=== PATIENT | male | born 1970 | race Caucasian/White ===

== ENCOUNTER 2020-05-01 09:08 | Outpatient (CLI) | payer BC, SELFPAY ==
--- NOTE | ~2020-05-01 | XR_ITS ---
XR lumbar spine 2-3V 05/01/2020 09:43 Indication: Back pain Procedure: 3 views lumbar spine Comparison: No prior studies for comparison. Findings: There is disc narrowing at L5-S1. There is endplate degenerative change. There is vacuum ph enomena at this level. No acute fracture or traumatic malalignment. No evidence for spondylolisthesis . Impression: 1: Mild lumbar spondylosis at L5-S1. Reviewed, dictated and finalized at location B. Impression: 1: Mild lumbar spondylosis at L5-S1.
--- NOTE | ~2020-05-01 | XR_ITS ---
EXAMINATION: XR chest 2V 05/01/2020 09:44 INDICATION: Chest pain. History of COPD. PROCEDURE: 2 view chest COMPARISON: Comparison to multiple prior studies sequentially, with oldest reviewed study dated 11/2013. FINDINGS: The lungs are clear. The cardiomediastinal silhouette is within normal limits. There is a prominent left nipple shadow. There are no pleural effusions. There is no pneumothorax suspected. IMPRESSION: 1: NO ACUTE CARDIOPULMONARY DISEASE. Reviewed, dictated and finalized at location B.
[2020-05-01 09:21] LABS: Basophils Absolute Auto 0.03 K/mm3 (0.00-0.10); Basophils Percent Auto 0.4 % (0.0-1.0); Eosinophils Absolute Auto 0.14 K/mm3 (0.02-0.50); Eosinophils Percent Auto 1.7 % (1.0-6.0); Hemoglobin 16.6 g/dL (14.0-18.0); Immature Granulocyte Absolute 0.02 K/mm3 (0.00-0.00); Immature Granulocyte Percent A 0.2 % (0.0-0.0); Lymphocytes Absolute Auto 2.72 K/mm3 (1.10-4.50); Lymphocytes Percent Auto 32.6 % (18.0-42.0); Mean Corpuscular HGB Conc 35.3 g/dL (32.0-36.0); Mean Corpuscular Hemoglobin 32.4 pg (27.0-31.0); Mean Corpuscular Volume 91.8 fL (78.0-102.0); Monocytes Absolute Auto 0.62 K/mm3 (0.10-0.90); Monocytes Percent Auto 7.4 % (2.0-11.0); Neutrophils Absolute Auto 4.8 K/mm3 (1.7-7.2); Neutrophils Percent Auto 57.7 % (50.0-70.0); Platelet Count Result 205 K/mm3 (150-420); Red Blood Count 5.12 M/mm3 (4.70-6.10); Red Cell Distribution Width 11.8 % (11.6-14.4); White Blood Count 8.4 K/mm3 (4.8-10.8)
[2020-05-01 10:41] LABS: Alanine Aminotransferase 53 U/L (16-63); Anion Gap 10 mmol/L (8-16); Aspartate Amino Transferase < 10 U/L (15-37); Bilirubin,Total 0.4 mg/dL (0.00-1.00); Blood Urea Nitrogen 15 mg/dL (7-18); Calcium 9.1 mg/dL (8.5-10.1); Carbon Dioxide 27 mmol/L (21-32); Chloride 105 mmol/L (98-108); Estimated Glomerular Filt Rate > 60; Glucose 93 mg/dL (70-99); Osmolality Calculated 294 mOsm/kg (285-295); Potassium 4.3 mmol/L (3.5-5.1); Sodium 142 mmol/L (136-145)
[2020-05-01 10:42] LABS: Albumin Level 4.5 g/dL (3.4-5.0); Alkaline Phosphatase 82 U/L (46-116); Cholesterol 215 mg/dL (0-200); Creatine Kinase 126 U/L (39-308); HDL Direct 34 mg/dL (40-60); LDL Cholesterol Calculated 137 mg/dL (<130); Total Protein 7.4 g/dL (6.4-8.2); Triglycerides 218 mg/dL (0-150)
[2020-05-01 10:56] LABS: Troponin I < 0.02 ng/mL (0.00-0.056)
== END 2020-05-01 09:09 | disposition home or self-care (01) ==
PROVIDERS: PCP Internal Medicine; Visit Provider Internal Medicine
DX: R07.9 Chest pain, unspecified (principal); E78.5 Hyperlipidemia, unspecified; M54.9 Dorsalgia, unspecified
CPT/HCPCS: 36415; 71046; 72100; 80053; 80061; 82550; 82553; 84484; 85025

== ENCOUNTER 2020-09-07 08:20 | Outpatient (CLI) | payer BC, SELFPAY ==
--- NOTE | ~2020-09-07 | MR_ITS ---
EXAMINATION: MR lumbar spine wo con EXAM DATE: 09/07/2020 09:10 INDICATION: Lumbar strain, low back pain, progressing over few months. TECHNIQUE: Multi-sequential, multiplanar MR images of the lumbar spine were obtained without contrast . Sagittal T1, T2, T2 fat saturation images. Axial T2 weighted images. There is no prior study for comparison. FINDINGS: There is L4-5 and L5-S1 disc desiccation. There is moderate loss of the L5-S1 disc height, mild at L4-5 with annular fissure. There is 3 mm retrolisthesis L5 on S1. The vertebral bodies are ot herwise aligned. The conus medullaris terminates at the L1/2 level and has normal signal intensity an d morphology. Paraspinal soft tissue is unremarkable. Level by level evaluation: L1-L2: Disc does not extend beyond the endplate margin. Facet arthropathy: Mild. Neural foraminal stenosis: No stenosis. Central canal stenosis: No stenosis. L2-L3: Disc does not extend beyond the endplate margin. Facet arthropathy: Mild to moderate. Neural foraminal stenosis: No stenosis. Central canal stenosis: No stenosis. L3-L4: There is a mild diffuse disc bulge. Facet arthropathy: Mild. Neural foraminal stenosis: No stenosis. Central canal stenosis: No stenosis. L4-L5: There is a moderate diffuse disc bulge. Facet arthropathy: Mild to moderate. Neural foraminal stenosis: Mild to moderate bilateral. Central canal stenosis: Mild to moderate. L5-S1: There is a mild to moderate diffuse disc bulge. Facet arthropathy: Mild to moderate. Neural foraminal stenosis: Moderate bilateral. Central canal stenosis: Mild. IMPRESSION: 1. L5-S1 grade 1 retrolisthesis, moderate spondylosis. 2. Lesser spondylosis above. Reviewed, dictated and finalized at location A. 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
== END 2020-09-07 08:21 | disposition home or self-care (01) ==
LOC: CHSIMG 08:24
PROVIDERS: PCP Nurse Practitioner Psychiatric/Mental Health; Visit Provider Nurse Practitioner Psychiatric/Mental Health
DX: S39.012A Strain of muscle, fascia and tendon of lower back, initial encounter (principal)
CPT/HCPCS: 72148

== ENCOUNTER 2020-09-18 14:52 | Outpatient (RCR) | payer BC, SELFPAY ==
--- NOTE | 2020-09-18 15:55 | PTOPEVAL ---
Thank you for referring Wilson Ding to [facility] The patient is scheduled to be seen for therapy? ____x/week for ___ weeks. Please review, sign, date and return this plan of care ARON. I agree with and certify that the following plan of care is medically necessary. Referring Physician Date Admitting Provider: Attending Provider: Madi Giles Referring Provider: NICKY Outpatient Evaluation Start: 09/18/20 15:06 Freq: Status: Active Protocol: Document 09/18/20 15:05 DULCE (Rec: 09/18/20 15:52 DULCE [email or web address]) Therapy Assessment Status Assessment Status Assessment Status Evaluation Evaluation Information Problem Diagnosis lumbar stenosis, lumbar radiculopathy Onset 08/30/20 Additional Evaluation Detail oswestry = 20% functionally declined Subjective Information patient reports he has been Query Text:As Reported By Patient/ having pain in the back for Family about 3 months. he reports the pain got better initially, but started back up about 3 weeks ago. he reports the pain is now worse this time around . he reports he took a dose pack for the pain in the lower back during the 1st bout. he reports he felt a pop in his back the 2nd time that put him in a position unable to walk. he reports he has had an xray and an mri of the lumbar spine. his MRI shows mild to moderate stenosis. he reports he has numbness and burning in the front of his R LE. patient reports he has pain down the leg with sitting or standing for a long time. he reports he has general back pain/tightness with bending and twisting activities. 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 he reports prior to 3 months ago, no major issues, but dome tightness/ soreness with long days here and there. patient reports he
--- NOTE | 2020-09-18 16:12 | PTOPEVAL ---
Thank you for referring Wilson Ding to [facility].? The patient is scheduled to be seen for therapy? ____x/week for ___ weeks. Please review, sign, date and return this plan of care ARON. I agree with and certify that the following plan of care is medically necessary. Referring Physician Date Admitting Provider: Attending Provider: Madi Giles Referring Provider: NICKY Outpatient Evaluation Start: 09/18/20 15:06 Freq: Status: Active Protocol: Document 09/18/20 15:05 DULCE (Rec: 09/18/20 15:52 DULCE [email or web address]) Therapy Assessment Status Assessment Status Assessment Status Evaluation Evaluation Information Problem Diagnosis lumbar stenosis, lumbar radiculopathy Onset 08/30/20 Additional Evaluation Detail oswestry = 20% functionally declined Subjective Information patient reports he has been Query Text:As Reported By Patient/ having pain in the back for Family about 3 months. he reports the pain got better initially, but started back up about 3 weeks ago. he reports the pain is now worse this time around . he reports he took a dose pack for the pain in the lower back during the 1st bout. he reports he felt a pop in his back the 2nd time that put him in a position unable to walk. he reports he has had an xray and an mri of the lumbar spine. his MRI shows mild to moderate stenosis. he reports he has numbness and burning in the front of his R LE. patient reports he has pain down the leg with sitting or standing for a long time. he reports he has general back pain/tightness with bending and twisting activities. 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 he reports prior to 3 months ago, no major issues, but dome tightness/ soreness with long days here and there. patient reports he
--- NOTE | 2020-11-18 07:13 | PCPTNOTE ---
11/18/20 - patient has not been to skilled PT in nearly 2 months. as of this date, he will be dc'd from skilled PT services and all progress towards goals will be taken from his most recent evaluation/note. DULCE
== END 2020-09-23 10:45 | disposition home or self-care (01) ==
LOC: CHSPT 14:52
DX: M48.061 Spinal stenosis, lumbar region without neurogenic claudication (principal); M54.16 Radiculopathy, lumbar region
CPT/HCPCS: 97014; 97110; 97161; G0283

== ENCOUNTER 2021-06-15 19:57 | Emergency (ER) | payer BC, SELFPAY ==
--- NOTE | ~2021-06-15 | XR_ITS ---
XR chest 1V portable 06/15/2021 20:42 Indication: Chest pain Procedure: AP portable chest Comparison: Comparison to multiple prior studies sequentially, with oldest reviewed study dated 03/2015. Findings: Heart size normal. Elevated right diaphragm. Right basilar atelectasis. No focal pneumonia, edema, pleural effusion or pneumothorax. No acute osseous abnormality. Impression: 1: Right basilar atelectasis. Reviewed, dictated and finalized at location A. Impression: 1: Right basilar atelectasis.
--- NOTE | 2021-06-15 20:01 | ECG_ITS ---
Measurements Intervals [place] Rate: 95 P: 61 GA: 165 QRS: -42 QRSD: 106 T: 68 QT: 339 QTc: 428 Interpretive Statements SINUS RHYTHM LEFT AXIS DEVIATION CANNOT RULE OUT SEPTAL INFARCT, AGE INDETERMINATE BORDERLINE ST-T WAVE ABNORMALITY- INF/LAT LEADS BASELINE ARTIFACT- I, II, AVR, AVF, V1-V2 ABNORMAL ECG Electronically Signed On 06-16-2021 7:54:11 CDT by Cristhian Blanca D.O.
[2021-06-15 20:05] VITALS: BP 216/122; PULSE 95; RESP 20; TEMP 37.3; O2SAT 97
[2021-06-15] MEDS: SODIUM CHLORIDE 0.9% IV 1,000 ML 150 ML IV CONT (20:15)
[2021-06-15] MEDS: NITROGLYCERIN SL 0.4 MG TABLET SUBLINGUAL (20:20)
[2021-06-15] MEDS: ASPIRIN 81 MG CHEWABLE TABLET 324 MG (20:25)
[2021-06-15] MEDS: ONDANSETRON INJ 4 MG/2 ML VIAL IV PUSH ×3 (20:25→21:07)
[2021-06-15 20:27] LABS: Basophils Absolute Auto 0.05 K/mm3 (0.00-0.10); Basophils Percent Auto 0.6 % (0.0-1.0); Eosinophils Absolute Auto 0.18 K/mm3 (0.02-0.50); Eosinophils Percent Auto 2.1 % (1.0-6.0); Hematocrit 46.6 % (40.0-54.0); Hemoglobin 16.7 g/dL (14.0-18.0); Immature Granulocyte Absolute 0.02 K/mm3 (0.00-0.00); Immature Granulocyte Percent A 0.2 % (0.0-0.0); Lymphocytes Absolute Auto 3.37 K/mm3 (1.10-4.50); Lymphocytes Percent Auto 38.4 % (18.0-42.0); Mean Corpuscular HGB Conc 35.8 g/dL (32.0-36.0); Mean Corpuscular Hemoglobin 32.5 pg (27.0-31.0); Mean Corpuscular Volume 90.7 fL (78.0-102.0); Mean Platelet Volume 11.5 fl (8.7-11.0); Monocytes Absolute Auto 0.74 K/mm3 (0.10-0.90); Monocytes Percent Auto 8.4 % (2.0-11.0); Neutrophils Absolute Auto 4.4 K/mm3 (1.7-7.2); Neutrophils Percent Auto 50.3 % (50.0-70.0); Platelet Count Result 186 K/mm3 (150-420); Red Blood Count 5.14 M/mm3 (4.70-6.10); Red Cell Distribution Width 11.5 % (11.6-14.4); White Blood Count 8.8 K/mm3 (4.8-10.8)
[2021-06-15 20:45] VITALS: BP 158/99; PULSE 95; RESP 20; O2SAT 97; O2SAT 98
[2021-06-15 20:45] LABS: Alanine Aminotransferase 64 U/L (16-63); Albumin Level 3.8 g/dL (3.4-5.0); Alkaline Phosphatase 83 U/L (46-116); Bilirubin,Total 0.3 mg/dL (0.00-1.00); Blood Urea Nitrogen 18 mg/dL (7-18); Calcium 7.9 mg/dL (8.5-10.1); Carbon Dioxide 26 mmol/L (21-32); Estimated CRCL calculation 54 ml/min; Estimated Glomerular Filt Rate 36; Lactic Acid Reflex 0.8 mmol/L (0.4-2.0); Total Protein 6.9 g/dL (6.4-8.2)
[2021-06-15] MEDS: MORPHINE SULFATE (*CRX) 2 MG/ML INJ IV PUSH ×2 (20:46→21:18)
[2021-06-15 20:59] LABS: Anion Gap 12 mmol/L (8-16); Aspartate Amino Transferase 20 U/L (15-37); Chloride 102 mmol/L (98-108); Glucose 107 mg/dL (70-99); Osmolality Calculated 291 mOsm/kg (285-295); Potassium 3.8 mmol/L (3.5-5.1); Sodium 140 mmol/L (136-145); Troponin I 4.9 ng/L (0.00-60.4)
[2021-06-15 21:15] VITALS: BP 114/75; PULSE 68; RESP 20; O2SAT 97
[2021-06-15] MEDS: MAG HYDROX/ALUMINUM HYD/SIMETH 30 ML, PHENobarb/HYOSCY/ATROPINE/SCOP 32.4 MG, LIDOCAINE... PO (21:18)
[2021-06-15] MEDS: PANTOPRAZOLE SODIUM IV 40 MG VIAL IV PUSH (21:18)
[2021-06-15 21:45] VITALS: BP 146/87; PULSE 74; RESP 20; O2SAT 99
--- NOTE | 2021-06-15 21:46 | PC.NURSE ---
2019 NITRO #1 B/P 203/118 P 90 PAIN 03/25 2025 NITRO #2 B/P 186/107 P 98 PAIN 03/25 2030 NITRO #3 B/P 180/110 P 100 PAIN 02/22
--- NOTE | 2021-06-15 21:49 | PC.NURSE ---
PT HAD EMESIS FEELS A LITTLE BETTER NOT TORADOL INJ GIVEN
[2021-06-15] MEDS: KETOROLAC (*BKC) 60 MG/2 ML VIAL IM (21:50)
--- NOTE | 2021-06-15 22:01 | ED.CHESTPAIN ---
HPI - Chest Pain General Chief Complaint: Chest Pain Stated Complaint: chest pain Time Seen by Provider: 06/15/21 19:59 Source: patient and RN notes reviewed Mode of arrival: ambulatory Limitations: no limitations History of Present Illness MD complaint: chest pain Pertinent past history: coronary artery disease and prior [place] Onset (ago): minute(s) (30) Timing of current episode: constant Prior episodes: Yes Onset: during rest Pain location: substernal, left chest and epigastric Pain radiation: none Severity: moderate Pain scale (0-10): 8 Quality: aching, heaviness and dull Relieving factors: nothing Exacerbating factors: nothing Associated symptoms: nausea and vomiting Treatment prior to arrival: none Risk Factors Coronary artery disease risk factors: hyperlipidemia, hypertension and family history of CAD before age 50 Thoracic aortic dissection risk factors: none Related Data Home Medications Medication Instructions Recorded Confirmed amlodipine 10 mg PO HS 06/15/21 06/15/21 montelukast 10 mg PO DAILY 06/15/21 06/15/21 sertraline 75 mg PO DAILY 06/15/21 06/15/21 trazodone 150 mg PO HS 06/15/21 06/15/21 Allergies Allergy/AdvReac Type Severity Reaction Status Date / Time meperidine Allergy Unknown Unknown Unverified 06/15/21 21:06 Penicillins Allergy Unknown Unknown Verified 06/15/21 21:06 morphine AdvReac Unknown Unknown Verified 06/15/21 21:27 Review of Systems Review of Systems: All systems reviewed & are unremarkable except as noted in HPI and below Cardiovascular: Cardiovascular: Reports chest pain Gastrointestinal: Gastrointestinal: Reports heartburn and Reports nausea PMFSH Past Medical History Medical History Chest pain Exam Const: General: no acute distress and alert Nutritional Appearance: well nourished Orientation/consciousness: patient oriented x3 Limitations: no limitations HENMT: Head: normal to inspection General nose exam: Normal external nose present and Normal nares present Mouth: Yes lip normal and Yes moist mucous membranes Teeth and gingiva: dentition normal Eyes: Conjunctivae: conjunctivae normal Pupils: Equal, round and reactive pupils present EOM: EOMs intact bilaterally Neck: Neck: normal visual inspection and no lymphadenopathy Chest: Chest palpation & inspection: normal inspection of the chest Resp: Effort & Inspection: normal respiratory effort Auscultation: clear to auscultation bilaterally Cardio: Rate: regular rate Rhythm: regular rhythm GI: Auscultation: normal bowel sounds : General: Yes no CVA tenderness Male General Exam: Yes normal external exam Testes: Testes normal Back/Spine/Pelvis: Back: no CVA tenderness Skin: General skin exam: normal color Rashes: no rashes Neuro: General: patient oriented x3, moves all extremities, no meningeal signs, no focal motor deficits and CN's II-XI intact bilaterally Extrem: General: normal to inspection and no pedal edema Psych: Appearance: grossly normal and well kempt Mental Status: mental status grossly normal Thought content: Yes Normal thought content present Course Course Emergency Course: Pt was stable and less painful, after emesis episode. Reevaluation(s) Date: 06/15/21 Time: 20:56 Vital Signs Vital signs: Vital Signs Temperature 37.3 C 06/15/21 20:05 Pulse Rate 95 06/15/21 20:05 Respiratory Rate 20 06/15/21 20:05 Blood Pressure 216/122 H 06/15/21 20:05 Pulse Oximetry 97 06/15/21 20:05 Temperature 36.9 C 06/15/21 23:18 Pulse Rate 76 06/15/21 23:18 Respiratory Rate 20 06/15/21 23:18 Blood Pressure 145/66 H 06/15/21 23:18 Pulse Oximetry 98 06/15/21 23:18 MDM - Chest Pain Differential Diagnosis Differential diagnosis: Likely atypical chest pain, chest pain and other (GERD) Medical Records Data Attestation: I reviewed the patient's medical records. Lab Data Attestation: I reviewed the patient'
[2021-06-15 22:14] VITALS: BP 136/61; PULSE 74; RESP 20; O2SAT 98
[2021-06-15 22:56] LABS: Troponin I 4.8 ng/L (0.00-60.4)
[2021-06-15 23:18] VITALS: BP 145/66; PULSE 76; RESP 20; TEMP 36.9; O2SAT 98
== END 2021-06-15 23:48 | disposition home or self-care (01) ==
PROVIDERS: Emergency Provider Emergency Medicine; PCP Family Medicine
DX: R07.89 Other chest pain (principal); K21.9 Gastro-esophageal reflux disease without esophagitis
CPT/HCPCS: 36415; 71045; 80053; 83605; 84484; 85025; 93005; 96361; 96372; 96374; 96375; 99283; 99284; A9270; C9113; J1885; J2270; J2405; J7030

== ENCOUNTER 2021-07-26 10:26 | Outpatient (CLI) | payer BC, SELFPAY ==
[2021-07-26 10:39] LABS: Basophils Absolute Auto 0.03 K/mm3 (0.00-0.10); Basophils Percent Auto 0.6 % (0.0-1.0); Eosinophils Percent Auto 1.9 % (1.0-6.0); Hematocrit 47.2 % (40.0-54.0); Immature Granulocyte Absolute 0.01 K/mm3 (0.00-0.00); Immature Granulocyte Percent A 0.2 % (0.0-0.0); Lymphocytes Absolute Auto 2.09 K/mm3 (1.10-4.50); Lymphocytes Percent Auto 40.3 % (18.0-42.0); Mean Corpuscular Hemoglobin 32.1 pg (27.0-31.0); Mean Corpuscular Volume 89.1 fL (78.0-102.0); Mean Platelet Volume 11.3 fl (8.7-11.0); Monocytes Absolute Auto 0.55 K/mm3 (0.10-0.90); Monocytes Percent Auto 10.6 % (2.0-11.0); Neutrophils Absolute Auto 2.4 K/mm3 (1.7-7.2); Neutrophils Percent Auto 46.4 % (50.0-70.0); Platelet Count Result 162 K/mm3 (150-420); Red Cell Distribution Width 11.4 % (11.6-14.4); White Blood Count 5.2 K/mm3 (4.8-10.8)
[2021-07-26 11:04] LABS: Anion Gap 9 mmol/L (8-16); Blood Urea Nitrogen 14 mg/dL (7-18); Calcium 8.5 mg/dL (8.5-10.1); Carbon Dioxide 27 mmol/L (21-32); Chloride 104 mmol/L (98-108); Estimated Glomerular Filt Rate > 60; Glucose 95 mg/dL (70-99); Osmolality Calculated 290 mOsm/kg (285-295); Potassium 4.4 mmol/L (3.5-5.1); Sodium 140 mmol/L (136-145)
== END 2021-07-26 10:27 | disposition home or self-care (01) ==
LOC: CHSLAB 10:30
PROVIDERS: PCP Family Medicine
DX: R00.2 Palpitations (principal); R07.9 Chest pain, unspecified; I10 Essential (primary) hypertension; N17.9 Acute kidney failure, unspecified
CPT/HCPCS: 36415; 80048; 85025

== ENCOUNTER 2021-09-08 07:42 | Outpatient (CLI) | payer BC, SELFPAY ==
[2021-09-08 07:53] LABS: Basophils Absolute Auto 0.04 K/mm3 (0.00-0.10); Basophils Percent Auto 0.6 % (0.0-1.0); Eosinophils Percent Auto 1.4 % (1.0-6.0); Hematocrit 47.7 % (40.0-54.0); Hemoglobin 16.6 g/dL (14.0-18.0); Immature Granulocyte Absolute 0.02 K/mm3 (0.00-0.00); Immature Granulocyte Percent A 0.3 % (0.0-0.0); Lymphocytes Absolute Auto 2.09 K/mm3 (1.10-4.50); Lymphocytes Percent Auto 30.2 % (18.0-42.0); Mean Corpuscular HGB Conc 34.8 g/dL (32.0-36.0); Mean Corpuscular Hemoglobin 32.2 pg (27.0-31.0); Mean Corpuscular Volume 92.6 fL (78.0-102.0); Mean Platelet Volume 11.6 fl (8.7-11.0); Monocytes Absolute Auto 0.48 K/mm3 (0.10-0.90); Monocytes Percent Auto 6.9 % (2.0-11.0); Neutrophils Absolute Auto 4.2 K/mm3 (1.7-7.2); Neutrophils Percent Auto 60.6 % (50.0-70.0); Platelet Count Result 179 K/mm3 (150-420); Red Blood Count 5.15 M/mm3 (4.70-6.10); Red Cell Distribution Width 11.9 % (11.6-14.4); White Blood Count 6.9 K/mm3 (4.8-10.8)
[2021-09-08 08:45] LABS: Anion Gap 8 mmol/L (8-16); Blood Urea Nitrogen 17 mg/dL (7-18); Calcium 9.1 mg/dL (8.5-10.1); Carbon Dioxide 32 mmol/L (21-32); Chloride 103 mmol/L (98-108); Estimated Glomerular Filt Rate 53; Glucose 99 mg/dL (70-99); Osmolality Calculated 297 mOsm/kg (285-295); Potassium 4.6 mmol/L (3.5-5.1); Sodium 143 mmol/L (136-145)
== END 2021-09-08 07:43 | disposition home or self-care (01) ==
LOC: CHSLAB 07:45
PROVIDERS: PCP Nurse Practitioner Psychiatric/Mental Health
DX: R00.2 Palpitations (principal); R07.9 Chest pain, unspecified; I10 Essential (primary) hypertension; N17.9 Acute kidney failure, unspecified
CPT/HCPCS: 36415; 80048; 85025

== ENCOUNTER 2021-11-07 19:32 | Inpatient (IN) | payer BC, SELFPAY ==
--- NOTE | ~2021-11-07 | XR_ITS ---
EXAMINATION: XR chest 2V EXAM DATE: 11/07/2021 20:33 INDICATION: Chest Pain, Upper Mid Quad Abd Pain X 2 Days, Sharp Pain. TECHNIQUE: Frontal and lateral projections of the chest obtained and reviewed. There is no prior jaxson dy for comparison. FINDINGS: The lungs are clear. There are no pleural effusions. The cardiomediastinal silhouette is within normal limits. There is no pneumothorax suspected. The bones and soft tissues are unremarkab le. IMPRESSION: No acute cardiopulmonary findings. Reviewed, dictated and finalized at location G.
--- NOTE | ~2021-11-07 | US_ITS ---
EXAMINATION: US right upper quadrant DATE: 11/08/2021 08:13 INDICATION: Acute cholecystitis TECHNIQUE: Multiple grayscale and Doppler ultrasound images of the abdomen were obtained. COMPARISON: CT dated 11/07/2021 FINDINGS: The pancreatic head and body are normal in appearance. The pancreatic tail is not visualized. Visual ized proximal inferior vena cava is normal. Liver has normal echogenicity and contour, with a smooth surface. No liver lesion identified. No intrahepatic biliary duct dilation suspected. Portal venous f low was seen in the hepatopetal, normal direction and has normal Doppler waveform. There is mild gall bladder wall thickening which measures 3 to 4 mm. There is no cholelithiasis evident in the gallblad inocente. The common bile duct measures 5 mm, which is normal. 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 IMPRESSION: 1. Mild gallbladder wall thickening without sonographic Vines's sign and with likely gallstone at th e cystic duct not visualized on the current study but evident on prior CT which remain suspicious for acute cholecystitis. Reviewed, dictated and finalized at location A. IMPRESSION: 1. Mild gallbladder wall thickening without sonographic Vines's sign and with likely gallstone at the cystic duct not visualized on the current study but bethany dent on prior CT which remain suspicious for acute cholecystitis.
--- NOTE | ~2021-11-07 | CT_ITS ---
EXAMINATION: CT abdomen pelvis w con EXAM DATE: 11/07/2021 20:40 INDICATION: Upper abdominal pain . Epigastric pain. TECHNIQUE: Spiral CT of the abdomen and pelvis was performed following intravenous injection of 100 m L Omnipaque 350. Axial, coronal and sagittal images of the abdomen and pelvis were reviewed. The do se-length product (DLP) for this examination was 1113.55 mGy-cm. The exposure was tailored according to patient size (auto mA exposure control), and iterative reconstruction (ASIR) was used as addition al dose reduction technique. There is no prior study for comparison. FINDINGS: There is small calcified gallstone the cystic duct. Gallbladder is moderately distended and there is mild inflammation surrounding the gallbladder neck. Appearance is suspicious for acute chol ecystitis. Common bile duct is normal in caliber, no intrahepatic biliary duct dilation. The liver, spleen, adrenal glands and pancreas are unremarkable. Portal and splenic veins are wilson nt. Kidneys enhance symmetrically. There is no hydronephrosis. The prostate is unremarkable. The bladder is unremarkable. There is no retroperitoneal or pelvic lymphadenopathy. The appendix is normal. The stomach and small bowel are unremarkable. There is expected amount of c olonic stool. No free intraperitoneal gas. The heart is normal in size. There are no pericardial or pleural effusions. The lung bases are unremarkable. There are no osteoblastic or osteolytic les ions identified. IMPRESSION: Cystic duct stone. Probable acute cholecystitis. Reviewed, dictated and finalized at location .
--- NOTE | 2021-11-07 19:45 | ECG_ITS ---
Measurements Intervals [place] Rate: 78 P: 57 VA: 177 QRS: -26 QRSD: 118 T: 57 QT: 371 QTc: 425 Interpretive Statements SINUS RHYTHM CANNOT RULE OUT SEPTAL MYOCARDIAL INFARCTION , OF INDETERMINATE AGE [40+ ms Q WAVE IN V1/V2] COMPARED TO ECG 06/15/2021 20:08:21 NO SIGNIFICANT CHANGES Electronically Signed On 11-08-2021 8:35:28 CDT by Geo Olvera M.D.
[2021-11-07 19:46] VITALS: BP 176/98; PULSE 85; RESP 22; TEMP 36.4; O2SAT 97
--- NOTE | 2021-11-07 19:54 | ED.ABDPAIN ---
HPI - Abdominal Pain General Chief Complaint: Chest Pain Stated Complaint: CHEST PAIN Time Seen by Provider: 11/07/21 19:36 Source: patient Mode of arrival: ambulatory Limitations: no limitations History of Present Illness HPI narrative: Patient is a 51-year-old male complaining of epigastric pain, 9 out of 10, sharp, radiating to back accompanied by nausea started last night but worse today. Patient denies any chest pain, shortness of breath, vomiting, diaphoresis, fever or chills. Related Data Home Medications Medication Instructions Recorded Confirmed amlodipine 10 mg PO HS 06/15/21 06/15/21 montelukast 10 mg PO DAILY 06/15/21 06/15/21 sertraline 75 mg PO DAILY 06/15/21 06/15/21 trazodone 150 mg PO HS 06/15/21 06/15/21 Allergies Allergy/AdvReac Type Severity Reaction Status Date / Time Penicillins Allergy Unknown Hives Verified 11/07/21 19:53 Review of Systems Review of Systems: All systems reviewed & are unremarkable except as noted in HPI and below Constitutional: Constitutional: Denies body ache(s), Denies chills, Denies excessive sweating, Denies fatigue, Denies fever(s), Denies headache(s), Denies lethargy, Denies malaise, Denies weakness and Denies weight loss Eyes: Eyes: Denies blurry vision, Denies change in vision and Denies loss of vision ENT: Denies dizziness, Denies ear discharge, Denies headache(s), Denies lip swelling, Denies epistaxis, Denies nasal congestion, Denies neck pain, Denies throat swelling and Denies tongue swelling Cardiovascular: Cardiovascular: Denies chest pain, Denies chest pain at rest, Denies chest pain with activity, Denies diaphoresis, Denies rapid heart rate, Denies edema, Denies irregular heart rhythm, Denies lightheadedness, Denies palpitations, Denies dyspnea and Denies dyspnea on exertion Respiratory: Respiratory: Denies chest congestion, Denies cough, Denies hemoptysis, Denies dyspnea and Denies dyspnea on exertion Gastrointestinal: Gastrointestinal: Denies melena, Denies hematochezia, Denies diarrhea, Denies vomiting and Denies hematemesis Musculoskeletal: Musculoskeletal: Denies abnormal gait, Denies deformity, Denies joint swelling, Denies limited range of motion, Denies neck pain and Denies numbness Neurologic: Denies Abnormal speech present, Denies abnormal gait, Denies confusion, Denies dizziness, Denies headache(s), Denies focal weakness, Denies loss of vision, Denies numbness, Denies Other visual disturbances, Denies Sensory deficit (Neuro) and Denies weakness Psychiatric: Psychiatric: Denies confusion, Denies depression, Denies auditory hallucinations, Denies homicidal ideation and Denies suicidal ideation Endocrine: Endocrine: Denies cold intolerance, Denies excessive sweating, Denies fatigue, Denies heat intolerance and Denies palpitations Hematologic/Lymphatic: Hematologic/Lymphatic: Denies easy bleeding and Denies easy bruising Allergic/Immunologic: Allergic/Immunologic: Denies lip swelling, Denies throat swelling and Denies tongue swelling PMFSH Past Medical History Medical History Chest pain Comments Past medical history: Coronary artery disease with stent, hypertension, hyperlipidemia Family history: Hypertension, coronary disease Social history: Positive for smoker, no EtOH or drug use Exam Const: General: cooperative, healthy appearing, comfortable, no acute distress, well developed, alert and awake; No confusion Orientation/consciousness: oriented to person, oriented to place, oriented to time, patient oriented x3 and No confusion Limitations: no limitations HENMT: Head: normal to inspection, normocephalic and atraumatic Ears: hearing grossly normal bilaterally, TM normal on the right and TM normal on the left General nose exam: Normal external nose present, Normal nares present and No nasal discharge present Face and sinus: normal facial exam Mouth: Yes Normal oral and palatal mucosa present,
[2021-11-07 19:59] LABS: Basophils Percent Auto 0.5 % (0.2-1.2); Eosinophils Absolute Auto 0.1 K/mm3 (0-0.3); Eosinophils Percent Auto 1.7 % (0-4.4); Hematocrit 43.7 % (42.0-52.0); Hemoglobin 15.1 g/dL (14.0-18.0); Immature Granulocyte Absolute 0.01 K/mm3 (0.00-0.031); Immature Granulocyte Percent A 0.1 % (0-0.5); Lymphocytes Absolute Auto 2.72 K/mm3 (0.9-3.2); Lymphocytes Percent Auto 36.3 % (18.3-44.2); Mean Corpuscular HGB Conc 34.6 g/dl (32-36); Mean Corpuscular Hemoglobin 31.5 pg (26-34); Mean Corpuscular Volume 91.2 fl (80-100); Mean Platelet Volume 10.8 fl (7.4-10.4); Monocytes Absolute Auto 0.6 K/mm3 (0.1-0.6); Monocytes Percent Auto 7.7 % (2.6-8.5); Neutrophils Percent Auto 53.7 % (45.5-73.1); Platelet Count Result 175 k/mm3 (150-375); Red Blood Count 4.79 M/mm3 (4.6-6.20); Red Cell Distribution Width 11.9 % (11.5-14.5); White Blood Count 7.5 K/mm3 (4.5-10.0)
[2021-11-07] MEDS: MORPHINE SULFATE (*CRX) 2 MG/ML INJ IV PUSH (20:07)
[2021-11-07] MEDS: LACTATED RINGERS 1,000 ML 999 ML IV CONT (20:07)
[2021-11-07] MEDS: PROMETHAZINE HCL 25 MG/ML AMPUL 12.5 MG IV PUSH (20:07)
[2021-11-07 20:09] LABS: Alanine Aminotransferase 31 U/L (4-50); Albumin Level 4.3 g/dL (3.5-5.1); Alkaline Phosphatase 76 U/L (38-126); Anion Gap 5 mmol/L (8-16); Aspartate Amino Transferase 22 U/L (17-59); Bilirubin,Total 0.3 mg/dL (0.2-1.3); Blood Urea Nitrogen 13 mg/dL (9-20); Calcium 8.7 mg/dL (8.4-10.2); Carbon Dioxide 28 mmol/L (22-30); Chloride 106 mmol/L (98-107); Estimated CRCL calculation 104 ml/min; Estimated Glomerular Filt Rate > 60; Glucose 122 mg/dL (65-110); INR 1.3; Lipase 250 U/L (23-300); Potassium 3.8 mmol/L (3.4-5.0); Prothrombin Time 16.1 Seconds (11.1-14.7); Sodium 139 mmol/L (137-145)
[2021-11-07 20:10] LABS: Partial Thromboplastin Time 26.3 SECONDS (22.3-36.8)
[2021-11-07 20:20] LABS: Troponin I < 0.012 ng/mL (0.000-0.034)
[2021-11-07 20:23] LABS: Lactic Acid Reflex 0.9 mmol/L (0.7-2.1)
[2021-11-07 20:53] VITALS: BP 183/93; PULSE 87; RESP 20; O2SAT 96
[2021-11-07] MEDS: MORPHINE SULFATE (*CRX) 4 MG/ML INJ IV PUSH (21:28)
[2021-11-07] MEDS: HYDROmorphone HCL INJ (*CRX) 1 MG/ML SYR IV PUSH (22:25)
[2021-11-07 23:07] VITALS: PULSE 87; RESP 20; O2SAT 96
[2021-11-07 23:09] VITALS: BP 159/97; PULSE 71; RESP 16; TEMP 36.4; O2SAT 93
[2021-11-07 23:10] VITALS: BMI 32.3
[2021-11-07 23:13] LABS: Troponin I 0.015 ng/mL (0.000-0.034)
--- NOTE | 2021-11-07 23:15 | ADMGEN ---
This patient, Wilson Ding, was admitted to 2 Medical Room 240-. Patient/family oriented to hospital policies and general routines including ID bracelet, bed and alarms, visiting hours, pain management, procedures, bathroom and other care routines, personal items, smoking policy, room service/diet, and visiting hours. Information on how to activate the Rapid Response Team has been discussed. Patient/Family are encouraged to report perceived risks to care and to ask questions if they do not understand what they are told or what they should do.
[2021-11-07] MEDS: LACTATED RINGERS 1,000 ML 125 ML IV CONT (23:46)
[2021-11-08] VITALS (10 sets, daily range): BP systolic 133–158; BP diastolic 75–95; PULSE 75–97; RESP 14–20; TEMP 36.8–36.9; O2SAT 94–96
--- NOTE | 2021-11-08 00:46 | PCRCNOTE ---
RT placed hospital S9 unit in pt room. Pt is refusing CPAP currently but states he wears one while at home.
--- NOTE | 2021-11-08 01:02 | PM.IMHP ---
H&P: HPI History of Present Illness Date/Time: 11/08/21 01:02 Chief Complaint: Epigastric and ribcage pain Narrative: 51-year-old male with past medical history of coronary artery disease recent cardiac stent, COPD, hypertension, and continuous tobacco use who presented to the ER with epigastric and right upper quadrant abdominal pain radiating to the ribcage. Patient reported that on the shortly after breakfast he began having epigastric discomfort that radiated to the right upper quadrant. He reported that her bad enough that he decided to go home early from work. By that afternoon his pain had resolved. The next day he ate pizza for lunch and shortly thereafter developed severe epigastric abdominal pain radiates to the right upper quadrant and through to the back. This pain was different than his prior cardiac pain. He stated he felt as if the lower ribs on his right side were being pulled out. Pain was a 10/10 in intensity at its worst and today is currently a 5/10 in intensity after pain medications. He does have some chronic shortness of breath with climbing stairs with associated increased wheezing with vigorous activity. He denies any increased cough recently. He has noticed over the last 24 hours that he is wheezing more than usual. He denies any orthopnea. He does have obstructive sleep apnea and is usually compliant with his CPAP but did not wear his CPAP last night due to his discomfort. He denies any actual chest pain or tightness. He did report that his right upper quadrant pain was worse if he took a deep breath. His pain was accompanied by nausea and vomiting but since his pain has improved he has not had any further nausea or vomiting. He reports his abdomen still feels bloated. He denies having any fevers or chills. He does admit that he has had some vague epigastric and right upper quadrant pain intermittently on and off for the last couple of months. He denies any changes in bowel habits. He does occasionally have weak urinary stream and will occasionally feel like he is not emptying his bladder all the way. He denies any dysuria. He reports he usually drinks a large amount of water at work due to working in a hot environment. He states that the pain he was having blast couple of days was markedly different than his chest pain that he had 2 months ago when he had his stent placed. He had a stent placed at [facility] in [place]. He has not had any further chest pain since he had his stent placed. He does still smoke 1 pack of cigarettes per day but is proud of himself that he has cut down from 2.5 packs of cigarettes per day over the last several months. He reports that nicotine patches and nicotine supplements really do not work for him. He has tried using Chantix in the past and that this causes him to have bad dreams. Review of Systems Review of Systems: 12 systems were reviewed with pertinent positives and negatives per HPI. Except as documented in the HPI, all other systems were reviewed and are negative. [facility] Past Medical History Medical History (Updated 11/08/21 @ 07:12 by Danielle Raymundo DO) Anxiety and depression Continuous tobacco abuse COPD (chronic obstructive pulmonary disease) Coronary artery disease Essential hypertension Hyperlipidemia Obstructive sleep apnea With CPAP use Surgical History Surgical History (Updated 11/08/21 @ 07:12 by Danielle Raymundo DO) History of heart artery stent (08/2021) One stent placed History of tonsillectomy and adenoidectomy History of tympanostomy tube placement Bilateral x7 S/P cubital tunnel release Right Status post cataract extraction and insertion of intraocular lens of left eye Family History Family History (Updated 11/08/21 @ 07:07 by Danielle Raymundo DO) Mother , At age 70 Acute myocardial infarction Hypertension Father Acute myocardial infarction Chronic obstructive pulmonary disease Hypertension Sibling De
[2021-11-08] MEDS: metroNIDAZOLE 500 MG/ISO 100ML 500 MG/100 ML BAG 100 MG IVPB ×5 (02:06→23:53)
[2021-11-08] MEDS: amLODIPine BESYLATE 5 MG TABLET 10 MG PO ×2 (02:08→21:16)
[2021-11-08 02:34] LABS: Troponin I 0.041 ng/mL (0.000-0.034)
[2021-11-08 05:11] LABS: Hematocrit 43.9 % (42.0-52.0); Hemoglobin 15.2 g/dL (14.0-18.0); Mean Corpuscular HGB Conc 34.6 g/dl (32-36); Mean Corpuscular Hemoglobin 31.7 pg (26-34); Mean Corpuscular Volume 91.6 fl (80-100); Mean Platelet Volume 10.9 fl (7.4-10.4); Platelet Count Result 169 k/mm3 (150-375); Red Blood Count 4.79 M/mm3 (4.6-6.20); White Blood Count 10.9 K/mm3 (4.5-10.0)
[2021-11-08 05:21] LABS: Anion Gap 7 mmol/L (8-16); Blood Urea Nitrogen 11 mg/dL (9-20); Carbon Dioxide 27 mmol/L (22-30); Chloride 103 mmol/L (98-107); Estimated CRCL calculation 126 ml/min; Estimated Glomerular Filt Rate > 60; Glucose 108 mg/dL (65-110); Potassium 3.9 mmol/L (3.4-5.0); Sodium 137 mmol/L (137-145)
[2021-11-08 05:33] LABS: Troponin I < 0.012 ng/mL (0.000-0.034)
[2021-11-08] MEDS: HYDROmorphone HCL INJ (*CRX) 1 MG/ML SYR IV PUSH (08:56)
[2021-11-08] MEDS: METOPROLOL TARTRATE 50 MG TAB PO ×2 (09:04→21:16)
[2021-11-08] MEDS: ISOSORBIDE MONONITRATE 60 MG TAB.ER.24H PO (09:04)
[2021-11-08] MEDS: ATORVASTATIN 40 MG TABLET PO (09:04)
[2021-11-08] MEDS: SERTRALINE HCL 25 MG TABLET 75 MG PO (09:04)
[2021-11-08] MEDS: NICOTINE (*PBKC) 21 MG PATCH 1 PATCH TRANSDERM (09:06)
[2021-11-08] MEDS: LACTATED RINGERS 1,000 ML 125 ML IV CONT ×3 (09:14→22:08)
[2021-11-08] MEDS: IPRATROPIUM BR 0.02% INH SOLN 0.5 MG/2.5 ML VIAL INHALATION ×3 (09:57→20:53)
[2021-11-08] MEDS: ALBUTEROL SULFATE NEB 2.5 MG/0.5 ML INH 5 MG INHALATION ×3 (10:00→20:52)
[2021-11-08] MEDS: FLUTICASONE/SALMETEROL 45-21 MCG INHALER 1 PUFF 2 PUFF INHALATION ×2 (10:00→20:53)
--- NOTE | 2021-11-08 11:00 | P.PNIM_ITS ---
Progress Note: A&P Assessment and Plan (1) Acute cholecystitis: Code(s): K81.0 - Acute cholecystitis Status: Acute Assessment and Plan: * Complaints of abdominal pain radiation to the back * Abd/Pel CT cystic duct stone, probably acute cholecystitis * General surgery consulted thank you for your recommendation * Aspirin and Plavix at home * NPO with meds * Dilaudid for pain * IV fluids for hydration * Rocephin 2gm and Flagyl IV Q6hr * Ultrasound: Mild gallbladder wall thickening without sonographic Vines's sign and with likely gallstone at the cystic duct not visualized on the current study but evident on prior CT which remain suspicious for acute cholecystitis. * WBC slightly elevated at 10.9 (2) Continuous tobacco abuse: Code(s): Z72.0 - Tobacco use Status: Acute Assessment and Plan: * Patient smokes daily * Tobacco cessation information was discussed * Nicotine supplements have been offered and are on MAR PRN (3) Coronary artery disease: Qualifiers: Associated angina: without angina Coronary Disease-Associated Artery/Lesion type: [place] artery [place] vs. transplanted heart: [place] heart Qualified Code(s): I25.10 - Atherosclerotic heart disease of [place] coronary artery without angina pectoris Code(s): I25.10 - Atherosclerotic heart disease of [place] coronary artery without angina pectoris Status: Inactive Assessment and Plan: * History coronary artery disease * Given the location and presentation of his pain pain is not likely due to his coronary artery disease * more consistent with acute cholecystitis * Troponins 0.015, 0.041, <0.012 * EKG looks ok * Continue aspirin when appropiate (4) Essential hypertension: Code(s): I10 - Essential (primary) hypertension Status: Inactive Assessment and Plan: * Current BP is 158/95 * NPO as of now restart imdur 60mg PO daily, Metoprolol 50mg PO daily, amlodipine 10mg PO HS, when appropriate * Add hydralizine with parameters * Trend BP * Adjust therapy as indiciated (5) Hyperlipidemia: Code(s): E78.5 - Hyperlipidemia, unspecified Status: Inactive Assessment and Plan: * Atorvastatin 40mg PO daily * Continue when not NPO (6) COPD (chronic obstructive pulmonary disease): Code(s): J44.9 - Chronic obstructive pulmonary disease, unspecified Status: Inactive Assessment and Plan: * Advair added * Takes montelukast at home, continue when appropriate * Trend SPO2 * Chest xray shows no acute cardiopulmonary findings Time Spent With Patient Time with patient: Greater than 35 minutes Subjective Date/time seen: 11/08/21 1100 Interval history: Date/Time: 11/08/21 01:02 Narrative: 51-year-old male with past medical history of coronary artery disease recent cardiac stent, COPD, hypertension, and continuous tobacco use who presented to the ER with epigastric and right upper quadrant abdominal pain radiating to the ribcage. Patient reported that on the shortly after breakfast he began having epigastric discomfort that radiated to the right upper quadrant. He reported that her bad enough that he decided to go home early from work. By that afternoon his pain had resolved. The next day he ate pizza for lunch and shortly thereafter developed severe epigastric abdominal pain radiates to the right upper quadrant and through to the back. This pain was different than his
--- NOTE | 2021-11-08 11:00 | PM.IMPN ---
Progress Note: A&P Assessment and Plan (1) Acute cholecystitis: Code(s): K81.0 - Acute cholecystitis Status: Acute Assessment and Plan: Complaints of abdominal pain radiation to the back Abd/Pel CT cystic duct stone, probably acute cholecystitis General surgery consulted thank you for your recommendation Aspirin and Plavix at home NPO with meds Dilaudid for pain IV fluids for hydration Rocephin 2gm and Flagyl IV Q6hr Ultrasound: Mild gallbladder wall thickening without sonographic Vines's sign and with likely gallstone at the cystic duct not visualized on the current study but evident on prior CT which remain suspicious for acute cholecystitis. WBC slightly elevated at 10.9 (2) Continuous tobacco abuse: Code(s): Z72.0 - Tobacco use Status: Acute Assessment and Plan: Patient smokes daily Tobacco cessation information was discussed Nicotine supplements have been offered and are on MAR PRN (3) Coronary artery disease: Qualifiers: Associated angina: without angina Coronary Disease-Associated Artery/Lesion type: [place] artery [place] vs. transplanted heart: [place] heart Qualified Code(s): I25.10 - Atherosclerotic heart disease of [place] coronary artery without angina pectoris Code(s): I25.10 - Atherosclerotic heart disease of [place] coronary artery without angina pectoris Status: Inactive Assessment and Plan: History coronary artery disease Given the location and presentation of his pain pain is not likely due to his coronary artery disease more consistent with acute cholecystitis Troponins 0.015, 0.041, <0.012 EKG looks ok Continue aspirin when appropiate (4) Essential hypertension: Code(s): I10 - Essential (primary) hypertension Status: Inactive Assessment and Plan: Current BP is 158/95 NPO as of now restart imdur 60mg PO daily, Metoprolol 50mg PO daily, amlodipine 10mg PO HS, when appropriate Add hydralizine with parameters Trend BP Adjust therapy as indiciated (5) Hyperlipidemia: Code(s): E78.5 - Hyperlipidemia, unspecified Status: Inactive Assessment and Plan: Atorvastatin 40mg PO daily Continue when not NPO (6) COPD (chronic obstructive pulmonary disease): Code(s): J44.9 - Chronic obstructive pulmonary disease, unspecified Status: Inactive Assessment and Plan: Advair added Takes montelukast at home, continue when appropriate Trend SPO2 Chest xray shows no acute cardiopulmonary findings Time Spent With Patient Time with patient: Greater than 35 minutes Subjective Date/time seen: 11/08/21 1100 Interval history: Date/Time: 11/08/21 01:02 Narrative: 51-year-old male with past medical history of coronary artery disease recent cardiac stent, COPD, hypertension, and continuous tobacco use who presented to the ER with epigastric and right upper quadrant abdominal pain radiating to the ribcage. Patient reported that on the shortly after breakfast he began having epigastric discomfort that radiated to the right upper quadrant. He reported that her bad enough that he decided to go home early from work. By that afternoon his pain had resolved. The next day he ate pizza for lunch and shortly thereafter developed severe epigastric abdominal pain radiates to the right upper quadrant and through to the back. This pain was different than his prior cardiac pain. He stated he felt as if the lower ribs on his right side were being pulled out. Pain was a 10/10 in intensity at its worst and today is currently a 5/10 in intensity after pain medications. He does have some chronic shortness of breath with climbing stairs with associated increased wheezing with vigorous activity. He denies any increased cough recently. He has noticed over the last 24 hours that he is wheezing more than usual. He denies any orthopnea. He does
--- NOTE | 2021-11-08 12:06 | PM.CNGS ---
Assessment and Plan Assessment and plan (1) Acute calculous cholecystitis: Code(s): K80.00 - Calculus of gallbladder with acute cholecystitis without obstruction Status: Acute Assessment and Plan: I have reviewed the CT and discussed the findings with the patient. He presents with an episode of acute calculous cholecystitis but pain appears somewhat improved this morning and he does not appear septic or in need of emergent operation or decompression. He has been placed on broad-spectrum IV antibiotics. Due to his recent coronary stent placement, I would recommend continuing his Plavix to prevent rethrombosis. This makes the choice of operating much more difficult due to increased risks of bleeding with him being on anti-platelet therapy. Typically anti-platelet therapy should be continued for 6 months after stent placement, therefore it would be best to try to delay surgery until at least February of this year. Will try patient on clear liquids and advanced to low-fat diet as tolerated. Will repeat labs in the morning and reassess patient with his symptoms. If he is able to be discharged on a low-fat diet, will follow-up with patient and work on cardiac clearance for eventual surgery down the road. I discussed with patient that he will have to stay on a strict low-fat diet until it is safe to hold his Plavix and proceed with surgery. If he is unable to tolerate a low-fat diet this weekend, then we will have to consider proceeding with surgery while patient was still on anti-platelet therapy. This of course will increase his bleeding risks with surgery, but might have to proceed with given risks. Patient voiced his understanding. (2) Coronary artery disease: Qualifiers: Coronary Disease-Associated Artery/Lesion type: [place] artery [place] vs. 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 He states that on morning he ate donuts for breakfast and shortly after became ill. He had to go home from work. He then ate pizza for dinner last night and had recurrence of the pain and it became constant. He did have nausea and vomiting associated with this. He denies any fevers or change in bowel habits. He has never had symptoms like this in the past. He does have a recent history of cardiac catheterization with stent placement in August 2021. He was placed on Plavix after this. He denies any other prior history of abdominal problems. He denies any liver disease history. Since being admitted last night, his pain is somewhat improved, but he is still having some constant dull pain. Review of Systems Review of Systems: All systems reviewed & are unremarkable except as noted in HPI and below Constitutional: Constitutional: Denies chills and Denies fever(s) Eyes: Eyes: Denies change in vision ENT: Denies hearing loss, Denies neck pain and Denies sore throat Cardiovascular: Cardiovascular: Reports as per HPI, Denies chest pain and Denies dyspnea Respiratory: Respiratory:
[2021-11-08] MEDS: ASPIRIN 81 MG CHEWABLE TABLET PO (16:43)
[2021-11-08] MEDS: CLOPIDOGREL BISULFATE 75 MG TABLET PO (16:43)
[2021-11-08] MEDS: ENOXAPARIN 40 MG/0.4 ML SYRINGE SUB-Q (16:43)
[2021-11-08] MEDS: HYDROcodone/acetaminophen (*CRX) 5-325 MG TABLET 1 TAB PO (21:16)
[2021-11-08] MEDS: traZODone HCL 50 MG TABLET 150 MG PO (21:16)
[2021-11-08] MEDS: cefTRIAXone 2 GM in SODIUM CHLORIDE 0.9% IV 100 ML 200 ML IVPB (21:17)
--- NOTE | 2021-11-08 22:19 | PC.NURSE ---
11/08/21 Received critical result from Lab @[id number] per telephone. Troponin level of 0.041. Notified patients nurse, Cam Hodges RN of the critical valued called.
[2021-11-09] MEDS: ALBUTEROL SULFATE NEB 2.5 MG/0.5 ML INH 5 MG INHALATION ×2 (02:16→09:08)
[2021-11-09 02:17] VITALS: PULSE 68; RESP 16
[2021-11-09] MEDS: IPRATROPIUM BR 0.02% INH SOLN 0.5 MG/2.5 ML VIAL INHALATION ×2 (02:17→09:08)
[2021-11-09 02:26] VITALS: PULSE 73; RESP 16
[2021-11-09 06:00] VITALS: BP 119/73; PULSE 74; RESP 14; TEMP 36.6; O2SAT 93
[2021-11-09] MEDS: metroNIDAZOLE 500 MG/ISO 100ML 500 MG/100 ML BAG 100 MG IVPB (06:05)
[2021-11-09 06:06] LABS: Basophils Percent Auto 0.3 % (0.2-1.2); Eosinophils Percent Auto 0.6 % (0-4.4); Hematocrit 39.4 % (42.0-52.0); Hemoglobin 13.6 g/dL (14.0-18.0); Immature Granulocyte Absolute 0.02 K/mm3 (0.00-0.031); Immature Granulocyte Percent A 0.3 % (0-0.5); Lymphocytes Absolute Auto 1.66 K/mm3 (0.9-3.2); Lymphocytes Percent Auto 23.4 % (18.3-44.2); Mean Corpuscular HGB Conc 34.5 g/dl (32-36); Mean Corpuscular Volume 92.7 fl (80-100); Mean Platelet Volume 11.8 fl (7.4-10.4); Monocytes Absolute Auto 0.7 K/mm3 (0.1-0.6); Monocytes Percent Auto 9.3 % (2.6-8.5); Neutrophils Absolute Auto 4.7 K/mm3 (1.3-6.7); Neutrophils Percent Auto 66.1 % (45.5-73.1); Platelet Count Result 157 k/mm3 (150-375); Red Blood Count 4.25 M/mm3 (4.6-6.20); Red Cell Distribution Width 12.2 % (11.5-14.5); White Blood Count 7.1 K/mm3 (4.5-10.0)
[2021-11-09] MEDS: LACTATED RINGERS 1,000 ML 125 ML IV CONT (06:09)
[2021-11-09 06:23] LABS: Alanine Aminotransferase 46 U/L (4-50); Albumin Level 3.5 g/dL (3.5-5.1); Alkaline Phosphatase 77 U/L (38-126); Anion Gap 7 mmol/L (8-16); Aspartate Amino Transferase 32 U/L (17-59); Bilirubin,Total 0.7 mg/dL (0.2-1.3); Blood Urea Nitrogen 10 mg/dL (9-20); Calcium 8.2 mg/dL (8.4-10.2); Carbon Dioxide 27 mmol/L (22-30); Chloride 102 mmol/L (98-107); Estimated CRCL calculation 102 ml/min; Estimated Glomerular Filt Rate > 60; Glucose 102 mg/dL (65-110); Magnesium 2.1 mg/dL (1.6-2.3); Potassium 3.8 mmol/L (3.4-5.0); Sodium 136 mmol/L (137-145)
[2021-11-09] MEDS: METOPROLOL TARTRATE 50 MG TAB PO (08:40)
[2021-11-09] MEDS: ISOSORBIDE MONONITRATE 60 MG TAB.ER.24H PO (08:41)
[2021-11-09] MEDS: ATORVASTATIN 40 MG TABLET PO (08:41)
[2021-11-09] MEDS: SERTRALINE HCL 25 MG TABLET 75 MG PO (08:41)
[2021-11-09] MEDS: ENOXAPARIN 40 MG/0.4 ML SYRINGE SUB-Q (08:41)
--- NOTE | 2021-11-09 09:00 | PM.DS ---
DS: Admitting Diagnosis Discharge Date 11/09/21 0900 Admitting Diagnosis Cholecystitis DS: Discharge Diagnosis Discharge Diagnosis (1) Acute cholecystitis: Code(s): K81.0 - Acute cholecystitis Status: Acute Assessment and Plan: Complaints of abdominal pain radiation to the back Abd/Pel CT cystic duct stone, probably acute cholecystitis General surgery consulted thank you for your recommendation Aspirin and Plavix at home NPO with meds Dilaudid for pain IV fluids for hydration Rocephin 2gm and Flagyl IV Q6hr Ultrasound: Mild gallbladder wall thickening without sonographic Vines's sign and with likely gallstone at the cystic duct not visualized on the current study but evident on prior CT which remain suspicious for acute cholecystitis. WBC slightly elevated at 10.9 (2) Continuous tobacco abuse: Code(s): Z72.0 - Tobacco use Status: Acute Assessment and Plan: Patient smokes daily Tobacco cessation information was discussed Nicotine supplements have been offered and are on MAR PRN (3) Coronary artery disease: Qualifiers: Associated angina: without angina Coronary Disease-Associated Artery/Lesion type: [place] artery [place] vs. transplanted heart: [place] heart Qualified Code(s): I25.10 - Atherosclerotic heart disease of [place] coronary artery without angina pectoris Code(s): I25.10 - Atherosclerotic heart disease of [place] coronary artery without angina pectoris Status: Chronic Assessment and Plan: History coronary artery disease Given the location and presentation of his pain pain is not likely due to his coronary artery disease more consistent with acute cholecystitis Troponins 0.015, 0.041, <0.012 EKG looks ok Continue aspirin when appropiate (4) Essential hypertension: Code(s): I10 - Essential (primary) hypertension Status: Inactive Assessment and Plan: Current BP is 158/95 NPO as of now restart imdur 60mg PO daily, Metoprolol 50mg PO daily, amlodipine 10mg PO HS, when appropriate Add hydralizine with parameters Trend BP Adjust therapy as indiciated (5) Hyperlipidemia: Code(s): E78.5 - Hyperlipidemia, unspecified Status: Inactive Assessment and Plan: Atorvastatin 40mg PO daily Continue when not NPO (6) COPD (chronic obstructive pulmonary disease): Code(s): J44.9 - Chronic obstructive pulmonary disease, unspecified Status: Inactive Assessment and Plan: Advair added Takes montelukast at home, continue when appropriate Trend SPO2 Chest xray shows no acute cardiopulmonary findings DS: Summary Hospital Course Hospital Course: Patient is a 51-year-old male with a past medical history of CAD, COPD, hypertension, hyperlipidemia who presented to the ED with epigastric pain that radiated to shoulder blades. Patient stated that this all happened when he had breakfast. He then ate pizza on top of that. CT of the abdomen and pelvis did show that the patient had gallbladder thickening with choledocholithiasis. Right upper quadrant ultrasound did show the patient was having acute cholecystitis. GS was consulted however patient had recent stent placement and general surgery feels like the patient would need a good 6 months on Plavix. Patient was placed on IV fluids and antibiotics. Diet was advanced patient was able to tolerate a diet. Patient will need follow-up with General surgery after the 6 months. So he education was provided and patient was receptive and is willing to quit however patient does admit that this going to be a hard task. Talked to the patient about restarting Chantix with a different time schedule with taking in the morning and at night. Patient was able to tolerate a diet and is ready to go home at this time. Patient will need follow-up with General surgery at a later date. Patient denies any chest pain,
--- NOTE | 2021-11-09 09:00 | P.DS_ITS ---
DS: Admitting Diagnosis Discharge Date 11/09/21 0900 Admitting Diagnosis Cholecystitis DS: Discharge Diagnosis Discharge Diagnosis (1) Acute cholecystitis: Code(s): K81.0 - Acute cholecystitis Status: Acute Assessment and Plan: * Complaints of abdominal pain radiation to the back * Abd/Pel CT cystic duct stone, probably acute cholecystitis * General surgery consulted thank you for your recommendation * Aspirin and Plavix at home * NPO with meds * Dilaudid for pain * IV fluids for hydration * Rocephin 2gm and Flagyl IV Q6hr * Ultrasound: Mild gallbladder wall thickening without sonographic Vines's sign and with likely gallstone at the cystic duct not visualized on the current study but evident on prior CT which remain suspicious for acute cholecystitis. * WBC slightly elevated at 10.9 (2) Continuous tobacco abuse: Code(s): Z72.0 - Tobacco use Status: Acute Assessment and Plan: * Patient smokes daily * Tobacco cessation information was discussed * Nicotine supplements have been offered and are on MAR PRN (3) Coronary artery disease: Qualifiers: Associated angina: without angina Coronary Disease-Associated Artery/Lesion type: [place] artery [place] vs. transplanted heart: [place] heart Qualified Code(s): I25.10 - Atherosclerotic heart disease of [place] coronary artery without angina pectoris Code(s): I25.10 - Atherosclerotic heart disease of [place] coronary artery without angina pectoris Status: Chronic Assessment and Plan: * History coronary artery disease * Given the location and presentation of his pain pain is not likely due to his coronary artery disease * more consistent with acute cholecystitis * Troponins 0.015, 0.041, <0.012 * EKG looks ok * Continue aspirin when appropiate (4) Essential hypertension: Code(s): I10 - Essential (primary) hypertension Status: Inactive Assessment and Plan: * Current BP is 158/95 * NPO as of now restart imdur 60mg PO daily, Metoprolol 50mg PO daily, amlodipine 10mg PO HS, when appropriate * Add hydralizine with parameters * Trend BP * Adjust therapy as indiciated (5) Hyperlipidemia: Code(s): E78.5 - Hyperlipidemia, unspecified Status: Inactive Assessment and Plan: * Atorvastatin 40mg PO daily * Continue when not NPO (6) COPD (chronic obstructive pulmonary disease): Code(s): J44.9 - Chronic obstructive pulmonary disease, unspecified Status: Inactive Assessment and Plan: * Advair added * Takes montelukast at home, continue when appropriate * Trend SPO2 * Chest xray shows no acute cardiopulmonary findings DS: Summary Hospital Course Hospital Course: Patient is a 51-year-old male with a past medical history of CAD, COPD, hypertension, hyperlipidemia who presented to the ED with epigastric pain that radiated to shoulder blades. Patient stated that this all happened when he had breakfast. He then ate pizza on top of that. CT of the abdomen and pelvis did show that the patient had gallbladder thickening with choledocholithiasis. Right upper quadrant ultrasound did show the patient was having acute cholecystitis. GS was consulted however patient had recent stent placement and general surgery feels like the patient would need a good 6 months on Plavix. Patient was placed on IV fluids and antibiotics. Diet was advanced patient was able to tolerate a diet. [place]
--- NOTE | 2021-11-09 09:03 | PM.PNGS ---
Progress Note: A&P Assessment and Plan (1) Acute calculous cholecystitis: Code(s): K80.00 - Calculus of gallbladder with acute cholecystitis without obstruction Status: Acute Assessment and Plan: Doing well with low fat diet challenge. OK to discharge home today on low fat diet. Discussed with patient the importance of remaining on diet until surgery can safely be performed. Will have to discuss with window assembler about safe timing to hold clopidogrel. Follow up in office as outpatient. (2) Coronary artery disease: Qualifiers: Coronary Disease-Associated Artery/Lesion type: [place] artery [place] vs. 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 Still complains of stomach ache but not nearly as severe as on initial presentation. No fevers, nausea, or vomiting. Exam GI: Inspection: non-distended GI Palp: Yes Soft to palpation, Yes Tenderness to palpation present (GI) (mild RUQ), No Guarding due to palpation present (GI) and No Rebound tenderness present Auscultation: normal bowel sounds Objective Data Vital Signs Vital Signs: Vital Signs - 24 hr 11/08/21 09:30 11/08/21 14:00 11/08/21 14:10 Temperature 36.9 C Pulse Rate 97 78 75 Respiratory Rate 20 14 18 Blood Pressure 135/75 Pulse Oximetry 95 11/08/21 14:21 11/08/21 19:30 11/08/21 20:54 Temperature 36.8 C Pulse Rate 87 81 75 Respiratory Rate 18 18 18 Blood Pressure 133/77 Pulse Oximetry 96 94 11/08/21 21:02 11/08/21 21:16 11/09/21 02:17 Temperature Pulse Rate 84 84 68 Respiratory Rate 18 16 Blood Pressure Pulse Oximetry 11/09/21 02:26 11/09/21 06:00 Temperature 36.6 C Pulse Rate 73 74 Respiratory Rate 16 14 Blood Pressure 119/73 Pulse Oximetry 93 Intake/Output Intake/Output: Intake & Output 11/06/21 11/07/21 11/08/21 11/09/21 23:59 23:59 23:59 23:59 Intake Total 1050 3990 2200 Output Total 250 Balance 1050 3740 2200 Meds/Results Medications: Active Medications Generic Name Dose Route Start Last Admin Trade Name Freq PRN Reason Stop Dose Admin Hydrocodone Bitart/Acetaminophen 1 tab 11/08/21 12:19 11/08/21 21:16 Hydrocodone/Acetaminophen (*Crx) 5-325 Mg Tablet PO 1 tab Q4H PRN Administration Pain Rated 4-6 Albuterol 5 mg 11/08/21 08:00 11/09/21 02:16 Albuterol Sulfate Neb 2.5 Mg/0.5 Ml Inh INHALATION 5 mg Q6HRT BETSEY Administration Amlodipine Besylate 10 mg 11/08/21 01:00 11/08/21 21:16 Amlodipine Besylate 5 Mg Tablet PO 10 mg HS BETSEY Administration Aspirin 81 mg 11/08/21 15:20 11/08/21 16:43 Aspirin 81 Mg Chewable Tablet PO 81 mg DAILY@0800 BETSEY Administration Atorvastatin Calcium 40 mg 11/08/21 09:00 11/09/21 08:41 Atorvastatin 40 Mg Tablet PO 40 mg DAILY BETSEY Administration Clopidogrel Bisulfate 75 mg 11/08/21 09:00 11/08/21 16:43 Clopidogrel Bisulfate 75 Mg Tablet PO 75 mg DAILY BETSEY Administration Enoxaparin Sodium 40 mg 11/08/21 09:00 11/09/21 08:41 Enoxaparin 40 Mg/0.4 Ml Syringe SUB-Q 40 mg DAILY BETSEY Administration Hydromorphone HCl 1 mg 11/08/21 06:57 11/08/21 08:56 Hydromorphone Hcl Inj (*Crx) 1 Mg/Ml Syr IV PUSH 1 mg Q4H DC
[2021-11-09] MEDS: FLUTICASONE/SALMETEROL 45-21 MCG INHALER 1 PUFF 2 PUFF INHALATION (09:11)
[2021-11-09 09:12] VITALS: PULSE 79; RESP 16; O2SAT 96
[2021-11-09 09:13] VITALS: PULSE 87; RESP 16; O2SAT 96
[2021-11-09] MEDS: ASPIRIN 81 MG CHEWABLE TABLET PO (09:49)
[2021-11-09] MEDS: CLOPIDOGREL BISULFATE 75 MG TABLET PO (09:49)
== END 2021-11-09 10:31 | disposition home or self-care (01) | DRG 446 ==
LOC: ANHED 21:36 → ANH2MED 23:37
PROVIDERS: Admitting Provider Internal Medicine; Emergency Provider Emergency Medicine; PCP Nurse Practitioner Psychiatric/Mental Health; Visit Provider Nurse Practitioner
DX: K80.00 Calculus of gallbladder with acute cholecystitis without obstruction (principal); Z72.0 Tobacco use; I25.10 Atherosclerotic heart disease of native coronary artery without angina pectoris; G47.33 Obstructive sleep apnea (adult) (pediatric); J44.9 Chronic obstructive pulmonary disease, unspecified; E78.5 Hyperlipidemia, unspecified; F32.9 Major depressive disorder, single episode, unspecified; F41.9 Anxiety disorder, unspecified; I10 Essential (primary) hypertension; Z95.5 Presence of coronary angioplasty implant and graft; Z79.899 Other long term (current) drug therapy; Z79.82 Long term (current) use of aspirin; Z79.02 Long term (current) use of antithrombotics/antiplatelets
CPT/HCPCS: 36415; 71046; 74177; 76705; 80048; 80053; 83605; 83690; 83735; 84484; 85025; 85027; 85610; 85730; 93005; 94640; 96361; 96374; 96375; 96376; 99285; A9270; J0696; J1170; J1650; J2270; J2550; J7120; Q9967

== ENCOUNTER 2021-12-17 01:42 | Day surgery (SDC) | payer BC, SELFPAY ==
[2021-12-16 08:28] VITALS: BMI 32.8
--- NOTE | 2021-12-16 08:29 | PC.NURSE ---
Report to the Outpatient Waiting Room, entrance under the green pavilion located off [facility], at time 1200____ on date _12/17/21 . OR Time: ___1400 . - You and your visitor will be asked a series of questions to screen for COVID 19 for your protection. - Only one visitor is allowed at this time. - The patient visitor is requested to leave or wait in car when not with patient. - A mask is required within the hospital. Patients may have clear liquids (water, carbonated beverages, clear teas, apple juice) until 3 hours prior to surgery with a maximum of 20 ounces. - No food from midnight until time of surgery - Infants may have breast milk until 4 hours before surgery, infant formula 6 hours prior to surgery. - Children will be allowed to drink immediately following surgery. If applicable, please bring a bottle or sippy cup to assist with drinking. Juice, water, soda, and popsicles are readily available. For infants on formula, please bring formula the day of surgery. Pacifiers are allowed. Take the following medications with a SIP of water the morning of surgery: _METOPROLOL, SERTRALINE_ Medications to discontinue per physician CLOPIDOGREL Date to take last dose 12/09/21 Please no make-up, nail turkish, hairspray, perfume, deodorant, or body powder the day of surgery. No jewelry (including any body piercings) or valuables the day of surgery, leave them at home. Please take a shower or bath the night before, or the morning of, surgery with an antibacterial soap. Wear comfortable, loose fitting clothing. Children are encouraged to wear pajamas. - Jewelry must be removed prior to entering the operating room. Rings and piercings that are not removed may be cut off. - The hospital will not accept responsibility for valuables. - Please leave all valuables, including medications, at home the day of surgery. If you are going home after surgery, a licensed driver/merchandiser must drive you home. - NO public transportation without another adult. - We recommend that an adult stay with you for 24 hours following discharge. - We also recommend that you do not drive, make important decision, drink alcoholic beverages, or take any drugs that were not prescribed by your health care provider for at least 24 hours after your discharge time. For Pediatric surgeries, we recommend two adults accompany the child home (only one inside the building at this time). Follow any additional instructions given to you from your surgeon. If you or anyone in your household have experienced Covid symptoms in the past week, please notify your surgeon or the nurse liaison at the phone number below for possible testing. Telephone instructions given to _PATIENT and asked if any additional questions and then verbalized understanding. Patient advised to call surgeon office or pre surgery nurse liaison [phone] if any additional questions.
[2021-12-17] VITALS (8 sets, daily range): BP systolic 134–175; BP diastolic 79–98; PULSE 60–97; RESP 12–20; TEMP 36.2–36.8; O2SAT 93–100
--- NOTE | 2021-12-17 12:04 | WPDANESEPPF ---
Anes - Initial Pre Proc Eval Procedure: Operation Date: 12/17/21 14:00 Proposed Procedures p Laparoscopic Cholecystectomy, Possible Open - Fidel Vidales DO <Chin Monte MD - Last Filed: 12/18/21 08:49> Date/Time: 12/17/21 12:04 <Chin Monte MD - Last Filed: 12/18/21 08:49> Surgeon: Fidel Vidales DO <Chin Monte MD - Last Filed: 12/18/21 08:49> Pre Op Diagnosis: Acute Cholecystitis <Chin Monte MD - Last Filed: 12/18/21 08:49> Patient Data Age: 51 Gender: M Height: 1.85 m Weight: 113 kg <Chin Monte MD - Last Filed: 12/18/21 08:49> Allergies Allergy/AdvReac Type Severity Reaction Status Date / Time Penicillins Allergy Unknown Hives as Verified 12/17/21 12:05 child <Chin Monte MD - Last Filed: 12/18/21 08:49> Home Medications Medication Instructions Recorded Confirmed Type amlodipine 10 mg PO HS 06/15/21 12/17/21 History montelukast 10 mg PO DAILY 06/15/21 12/17/21 History sertraline 75 mg PO DAILY 06/15/21 12/17/21 History trazodone 150 mg PO HS 06/15/21 12/17/21 History aspirin 81 mg PO DAILY 11/07/21 12/17/21 History atorvastatin 40 mg PO HS 11/07/21 12/17/21 History clopidogrel 75 mg PO DAILY 11/07/21 12/16/21 History isosorbide mononitrate 60 mg PO DAILY 11/07/21 12/17/21 History metoprolol tartrate 50 mg PO DAILY 11/07/21 12/17/21 History nitroglycerin 0.4 mg SUBLINGUAL PRN PRN 11/07/21 12/16/21 History Advair HFA 2 puff INHALATION Q12HRT #12 g 11/09/21 12/17/21 Rx albuterol sulfate 2 inh INHALATION Q4-6H PRN #1 ea 11/09/21 12/17/21 Rx hydrocodone-acetaminophen 1 tablet PO Q4H PRN #10 tablet 12/17/21 Rx <Chin Monte MD - Last Filed: 12/18/21 08:49> Patient hx anesthesia problems: none <Italo Shepherd DO - Last Filed: 12/17/21 12:58> Family hx anesthesia problems: none <Italo Shepherd DO - Last Filed: 12/17/21 12:58> Results Review: All pre-operative results and documents have been reviewed as part of the pre-operative evaluation. <Chin Monte MD - Last Filed: 12/18/21 08:49> [facility] Past Medical History Medical History: Medical History Anxiety and depression Continuous tobacco abuse COPD (chronic obstructive pulmonary disease) Coronary artery disease Essential hypertension Hyperlipidemia Obstructive sleep apnea With CPAP use <Chin Monte MD - Last Filed: 12/18/21 08:49> Surgical History Surgical History: Surgical History History of heart artery stent (08/2021) One stent placed History of tonsillectomy and adenoidectomy History of tympanostomy tube placement Bilateral x7 S/P cubital tunnel release Right Status post cataract extraction and insertion of intraocular lens of left eye <Chin Monte MD - Last Filed: 12/18/21 08:49> Family History Family History: Family History Mother , At age 70 Acute myocardial infarction Hypertension Father Acute myocardial infarction Chronic obstructive pulmonary disease Hypertension Sibling , At age 18 Mitral valve prolapse Had a syncopal event behind the wheel and . <Chin Monte MD - Last Filed: 12/18/21 08:49> Social History Social History: Social History Social History: He has been to his current for 7 years. He has 1 daughter and 1 son that her grown. He has 3 step children. 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 He has smoked as much as 2.5 packs per day since he was a teenager. He has cut down to 1 pack of cigarettes per day for the last 6 months or so. He is a recovering alcoholic. He used to drink 12-18 beers a day but quit drinking alcohol 8 years ago. He denies any significan
[2021-12-17] MEDS: ACETAMINOPHEN 500 MG TABLET 1000 MG PO (12:10)
[2021-12-17] MEDS: LACTATED RINGERS 1,000 ML 30 ML IV CONT ×2 (12:30→14:16)
[2021-12-17] MEDS: KETOROLAC 15 MG/ML VIAL (*BKC) IV PUSH (12:35)
--- NOTE | 2021-12-17 12:36 | WPDHPUPDATE1 ---
History and Physical Update Update Date/Time: 12/17/21 12:36 History and Physical has been reviewed, including an updated exam of the patient. There are NO changes in the patient's condition. Risks, benefits, and alternatives have been discussed and questions answered. Patient agrees to proceed with procedure.
[2021-12-17 12:48] LABS: Amylase 81 U/L (30-110)
[2021-12-17] MEDS: ceFAZolin 2 GM/D5W 50 ML 2 GM/50 ML BAG IVPB (13:04)
--- NOTE | 2021-12-17 14:05 | W.PM.PROC2 ---
Procedure Note - Detailed Date of Procedure 12/17/21 Pre-op Diagnosis Acute Cholecystitis Post-op Diagnosis Same Procedure Performed Laparoscopic Cholecystectomy Surgeon Fidel Vidales, DO Anesthesia General and Local (0.5% bupivacaine) Indications This is a 51-year-old man who presented with prior episode of acute calculous cholecystitis. He was hospitalized about 3 months ago for acute cholecystitis, but was feeling better shortly after admission. He had a recent history of cardiac stent placement and is on anti-platelet therapy, therefore non operative measures were chosen to treat the patient initially. He has been staying on a low-fat diet and has not had any future attacks of pain, but is concerned about having another flare up. 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 Findings Laparoscopic cholecystectomy was performed. The gallbladder was somewhat dilated and elongated, and there was chronic gallbladder wall thickening. There were a few pericholecystic adhesions as well. The cystic duct appeared normal in size. No other intra-abdominal abnormalities were noted. The gallbladder was removed and sent to the lab for pathology. Description of Procedure Procedure as well as risks, benefits, and alternatives were discussed with patient. Written consent was obtained and placed in chart prior to procedure. The patient was brought back to surgical suite. Patient was placed in supine position on operating table. Time-out was done to confirm patient and procedure. Patient was then intubated by the anesthesia department. Abdomen was prepped and draped in sterile fashion using chlorhexidine prep. 0.5% bupivacaine with epinephrine was infiltrated at each site of incision. A 5 millimeter incision was made near the umbilicus, and a 5 millimeter Optiview trocar was advanced through the abdominal layers under direct visualization. Once inside the abdominal cavity, carbon dioxide was insufflated to create a pneumoperitoneum. The camera was inserted and the abdomen was inspected. No immediate abnormalities were identified. The patient was placed in reverse Trendelenburg position and rotated slightly to the left. An 11 millimeter incision was made in the subxiphoid region, and an 11 millimeter trocar was inserted under direct visualization. Two 5 millimeter incisions were made in the right upper quadrant, and two 5 millimeter trocars were inserted under direct visualization. The gallbladder was identified and grasped at the fundus and retracted superiorly. It was then grasped at the infundibulum retracted laterally. Careful dissection around the neck of the gallbladder was performed using blunt dissection with a [place] grasper and hook electrocautery. The cystic duct was identified, and a window was created behind it. The cystic artery was also identified and a window was created behind it. The critical view of safety was identified, visualizing the cystic duct running directly into the neck of the gallbladder, and the cystic artery running directly into the wall of the gallbladder. A 5 millimeter clip marine designer was then used to place 2 clips proximally and 1 clip distally on both the cystic duct and cystic artery. They were then both transected using endoscopic scissors. Once safely away from the cassius hepatitis, the gallbladder was dissected free from the liver bed using hook electrocautery. Hemostasis was achieved along the way. The gallbladder was removed completely and then removed through the subxiphoid port. The liver bed was then inspected. Hemostasis appeared adequate, and our clips appeared secure. The area was gently irrigated with sterile saline. No other abnormalities were seen. The patient was flattened out in bed, and 1 final inspection was made around the abdominal cavity. The subx
[2021-12-17] MEDS: oxyCODONE HCL (*CRX) 5 MG TAB IR PO (15:51)
== END 2021-12-17 16:15 | disposition home or self-care (01) ==
PROVIDERS: PCP Nurse Practitioner Psychiatric/Mental Health; Visit Provider Surgery
PROC: 0FT44ZZ Resection of Gallbladder, Percutaneous Endoscopic Approach (ICD-10-PCS; CPT 47562; principal; 2021-12-17 14:00)
DX: K81.1 Chronic cholecystitis (principal); I10 Essential (primary) hypertension; E78.5 Hyperlipidemia, unspecified; G47.33 Obstructive sleep apnea (adult) (pediatric); J44.9 Chronic obstructive pulmonary disease, unspecified; F17.210 Nicotine dependence, cigarettes, uncomplicated
CPT/HCPCS: 47562; 36415; 82150; 86850; 86900; 86901; 88304; A9270; J0690; J1100; J1170; J1885; J2250; J2405; J2704; J2710; J3010; J7030; J7120

== ENCOUNTER 2022-03-22 14:29 | Emergency (ER) | payer BC, SELFPAY ==
--- NOTE | ~2022-03-22 | XR_ITS ---
EXAM: XR foot LT min 3V DATE: 03/22/2022 15:04 HISTORY: dropped log on left foot at great toe. Pain. Walks . COMPARISON: None available. FINDINGS: Normal mineralization. No fracture or dislocation. No lytic or blastic lesion. Achilles en thesopathy. Mild first MTP osteoarthritis. No erosion or periosteal change. Forefoot soft tissue swel ling. IMPRESSION: No acute osseous finding in the left foot. Reviewed, dictated and finalized at location K.
[2022-03-22 14:37] VITALS: BP 153/94; PULSE 86; RESP 16; TEMP 36.6; O2SAT 98
--- NOTE | 2022-03-22 15:19 | ED.GENADULT ---
HPI - General Adult General Chief complaint: Extremity Injury, Lower Stated complaint: dropped log on L foot History of Present Illness HPI narrative: The patient is a 51-year-old male with history of hypertension, COPD, coronary artery disease status post coronary stenting on aspirin and clopidogrel. He was working with [employer] today whereby a 200 lb log fell accidentally onto his left foot while wearing sneakers. This resulted in a contusion and bruising in the distal aspect of the left foot, just before the left great toe. This occurred today. Ambulatory but with a limp. No other complaints. Related Data Home Medications Medication Instructions Recorded Confirmed amlodipine 10 mg tablet 10 mg PO HS 06/15/21 03/22/22 montelukast 10 mg tablet 10 mg PO DAILY 06/15/21 03/22/22 sertraline 50 mg tablet 75 mg PO DAILY 06/15/21 03/22/22 trazodone 150 mg tablet 150 mg PO HS 06/15/21 03/22/22 aspirin 81 mg tablet 81 mg PO DAILY 11/07/21 03/22/22 atorvastatin 40 mg tablet 40 mg PO HS 11/07/21 03/22/22 clopidogrel 75 mg tablet 75 mg PO DAILY 11/07/21 03/22/22 isosorbide mononitrate 60 mg 60 mg PO DAILY 11/07/21 03/22/22 tablet,extended release 24 hr metoprolol tartrate 50 mg tablet 50 mg PO DAILY 11/07/21 03/22/22 nitroglycerin 0.4 mg sublingual 0.4 mg sublingual PRN PRN Chest 11/07/21 03/22/22 tablet Pain Allergies Allergy/AdvReac Type Severity Reaction Status Date / Time Penicillins Allergy Unknown Hives as Verified 03/22/22 14:41 child Review of Systems Review of Systems: All systems reviewed & are unremarkable except as noted in HPI and below Constitutional: Constitutional: Reports no additional constitutional complaints, Denies anorexia, Denies body ache(s), Denies chills, Denies excessive sweating, Denies fatigue, Denies fever(s), Denies frequent falls, Denies headache(s), Denies malaise and Denies poor appetite Eyes: Eyes: Reports no additional eye complaints, Denies blurry vision, Denies change in vision, Denies irritation, Denies itchy eyes and Denies photophobia ENT: Reports system reviewed and no additional complaints, except as documented, Reports Normal hearing present, Denies change in voice, Denies dysphagia, Denies vertigo, Denies dizziness, Denies ear discharge, Denies headache(s), Denies hearing loss, Denies hoarseness, Denies nasal congestion, Denies neck pain, Denies sinus pressure, Denies sore throat and Denies throat swelling Cardiovascular: Cardiovascular: Reports no additional cardiovascular complaints, Denies chest pain, Denies syncope, Denies rapid heart rate, Denies irregular heart rhythm, Denies leg edema, Denies dyspnea and Denies slow heart rate Respiratory: Respiratory: Reports no additional respiratory complaints, Denies cough, Denies dyspnea, Denies stridor and Denies wheezing Gastrointestinal: Gastrointestinal: Reports no additional gastrointestinal complaints, Denies abdominal pain, Denies melena, Denies hematochezia, Denies dysphagia, Denies diarrhea, Denies nausea and Denies vomiting Genitourinary: Genitourinary: Denies hematuria, Denies oliguria, Denies dysuria, Denies flank pain, Denies urinary frequency and Denies urinary urgency Musculoskeletal: Musculoskeletal: Reports no additional musculoskeletal complaints, Reports abnormal gait, Denies back pain, Denies myalgias, Denies arthralgias, Denies joint swelling, Denies limited range of motion, Denies muscle cramps, Denies muscle weakness, Denies neck pain and Denies numbness Integumentary/Breasts: Skin/Breast: Reports system reviewed and no additional complaints, except as docu, Denies breast pain, Reports change in pigmentation, Denies pruritus, Denies erythema and Denies wounds Neurologic: Reports system reviewed and no additional complaints, except as documented, Reports Normal hearing present, Denies Abnormal speech present, Denies abnormal gait, Denies confusion, Denies vertigo, Denies dizziness, Denies syncope, Denies frequent falls, Den
[2022-03-22] MEDS: IBUPROFEN 400 MG TABLET 800 MG PO (15:24)
[2022-03-22] MEDS: ACETAMINOPHEN 500 MG TABLET 1000 MG PO (15:25)
[2022-03-22 15:28] VITALS: BP 153/94; PULSE 86; RESP 18; TEMP 36.6; O2SAT 98
== END 2022-03-22 15:53 | disposition home or self-care (01) ==
PROVIDERS: Emergency Provider Emergency Medicine; PCP Nurse Practitioner Psychiatric/Mental Health
DX: S90.32XA Contusion of left foot, initial encounter (principal); W22.8XXA Striking against or struck by other objects, initial encounter
CPT/HCPCS: 73630; 99283; A9270